=== PATIENT | male | born 1950 | race Caucasian/White ===

== ENCOUNTER 2022-10-24 07:30 | Inpatient (IN) | payer MEDICARE ==
[~2022-10-24] VITALS: Ht 180.3 cm; Wt 83.9 kg
[~2022-10-24 07:30] MED LIST: DICL20GE TOP; ESTE1TAB4 PO; LIDO1CRE2 EX; LOSA25TA13 PO; RA G1TAB11 PO; VITA100093 PO; VITMTA PO; [UNRECOGNIZED DRUG - CODE] PO; [UNRECOGNIZED DRUG - OTHER] PO; ginger root
[2022-10-24] MEDS ORDERED: ceFAZolin SOD 2 GM in IV 1 EA IV ONE (08:25)
[2022-11-15] VITALS (9 sets, daily range): BP systolic 137–152; BP diastolic 64–79; TEMP 97.5–98.1; O2SAT 95–98
[2022-11-15] MEDS ORDERED: UNRESOLVED CLARIFICATION ENTRY XX SCH (00:01)
[2022-11-15] MEDS ORDERED: LR 1,000 ML IV SCH ×2 (06:45→12:15)
[2022-11-15] MEDS ORDERED: ceFAZolin SOD 2 GM in IV 1 EA IV ONE (06:55)
[2022-11-15 07:08] LABS: INR 1.12; PROTHROMBIN TIME 14.1 SECONDS (12.5-14.5)
[2022-11-15 07:10] LABS: PARTIAL THROMBOPLASTIN TIME 32.6 SECONDS (24.8-34.2)
[2022-11-15] MEDS ORDERED: LIDOCAINE 1% SDV 30ML VIAL As Ordered ONE (07:13)
[2022-11-15] MEDS ORDERED: ONDANSETRON 4MG 2ML VIAL As Ordered ONE (07:18)
[2022-11-15] MEDS ORDERED: fentaNYL 250 MCG/5 ML INJECTION As Ordered ONE (07:18)
[2022-11-15] MEDS ORDERED: propofoL 200 MG/20 ML VIAL As Ordered ONE ×2 (07:18→12:31)
[2022-11-15] MEDS ORDERED: LIDOCAINE 2% 100MG/5ML SDV (FOR ANES.) As Ordered ONE (07:18)
[2022-11-15] MEDS ORDERED: ROCURONIUM BROMIDE 50MG/5ML VIAL As Ordered ONE ×2 (07:18→08:43)
[2022-11-15] MEDS ORDERED: CALCTAB53 PO (07:21)
[2022-11-15] MEDS ORDERED: MIDAZOLAM INJ 2MG/2ML VIAL As Ordered ONE (07:22)
[2022-11-15] MEDS ORDERED: HOME MED LIST COMPLETE! XX SCH (07:25)
[2022-11-15] MEDS ORDERED: ONDANSETRON 4MG 2ML VIAL IV PRN ×2 (07:35→12:15)
[2022-11-15] MEDS ORDERED: PERCOCET 5MG/325MG TAB PO PRN (07:35)
[2022-11-15] MEDS ORDERED: LACRILUBE (AKWA TEARS) OPHTH OINT 3.5GM As Ordered ONE (08:07)
[2022-11-15] MEDS ORDERED: MANNITOL 25% 12.5GM 50ML VIAL As Ordered ONE (09:23)
[2022-11-15] MEDS ORDERED: ACETAMINOPHEN 1000MG 100ML IV BAG As Ordered ONE (10:00)
[2022-11-15] MEDS ORDERED: SUGAMMADEX SODIUM 500 MG/5 ML VIAL (BRIDION) As Ordered ONE (10:00)
[2022-11-15] MEDS ORDERED: HYDROmorphone HCL 2MG/ML 1ML VIAL As Ordered ONE (10:00)
[2022-11-15] MEDS ORDERED: ceFAZolin 2 GM/D5W 50 ML IV BAG As Ordered ONE (11:40)
[2022-11-15] MEDS ORDERED: fentaNYL 100 MCG/2 ML INJECTION IV PRN (12:15)
[2022-11-15] MEDS ORDERED: oxyCODONE 5MG TAB PO PRN (12:15)
[2022-11-15] MEDS ORDERED: HYDROMORPHONE HCL 0.5 MG/ 0.5 ML SYRINGE IV PRN (12:15)
[2022-11-15] MEDS ORDERED: dexmedeTOMIDine (4MCG/ML)200MCG/50ML BTL (PRECEDEX) As Ordered ONE (12:29)
[2022-11-15 13:54] LABS: HEMATOCRIT 41.1 % (42.0-52.0); HEMOGLOBIN 13.4 g/dl (13.5-17.5); MEAN CORPUSCULAR HEMOGLOBIN 30.9 pg (27.0-33.0); MEAN CORPUSCULAR HGB CONC 32.6 g/dl (32.0-36.5); MEAN CORPUSCULAR VOLUME 94.7 fl (80.0-96.0); PLATELET COUNT, AUTOMATED 251 10^3/uL (150-450); RED BLOOD COUNT 4.34 10^6/uL (4.30-6.10); WHITE BLOOD COUNT 17.9 10^3/uL (4.0-10.0)
[2022-11-15 14:09] LABS: CALCIUM LEVEL 9.1 MG/DL (8.3-10.6); CREATININE FOR GFR 1.32 MG/DL (0.70-1.30); GLOMERULAR FILTRATION RATE 56.8 (>42); POTASSIUM SERUM 4.3 MMOL/L (3.5-5.1)
[2022-11-15] MEDS: NS 1,000 ML IV SCH ×2 (15:35→18:14)
[2022-11-15] MEDS: ceFAZolin SOD 1 GM in D5W MINI-BAG PLUS 50 ML IV SCH (18:14)
[2022-11-15] MEDS: ACETAMINOPHEN TAB 650MG DOSE (2X325MG) PO PRN (20:28)
[2022-11-15] MEDS: DOCUSATE SODIUM 100MG CAPSULE PO SCH (20:28)
[2022-11-16] MEDS: ceFAZolin SOD 1 GM in D5W MINI-BAG PLUS 50 ML IV SCH (00:44)
[2022-11-16] MEDS: NS 1,000 ML IV SCH (03:29)
[2022-11-16 03:35] VITALS: BP 135/66; TEMP 97.9; O2SAT 100
[2022-11-16 07:00] LABS: HEMATOCRIT 37.5 % (42.0-52.0); HEMOGLOBIN 12.5 g/dl (13.5-17.5); MEAN CORPUSCULAR HEMOGLOBIN 30.6 pg (27.0-33.0); MEAN CORPUSCULAR HGB CONC 33.3 g/dl (32.0-36.5); MEAN CORPUSCULAR VOLUME 91.9 fl (80.0-96.0); PLATELET COUNT, AUTOMATED 222 10^3/uL (150-450); RED BLOOD COUNT 4.08 10^6/uL (4.30-6.10); WHITE BLOOD COUNT 18.9 10^3/uL (4.0-10.0)
[2022-11-16 07:25] LABS: CALCIUM LEVEL 9.1 MG/DL (8.3-10.6); CREATININE FOR GFR 1.63 MG/DL (0.70-1.30); GLOMERULAR FILTRATION RATE 44.5 (>42); POTASSIUM SERUM 4.6 MMOL/L (3.5-5.1)
[2022-11-16] MEDS: DOCUSATE SODIUM 100MG CAPSULE PO SCH ×2 (09:15→20:46)
[2022-11-16] MEDS: LOSARTAN 25 MG TAB PO SCH (09:16)
[2022-11-16 10:00] VITALS: BP 133/64; TEMP 97.9; O2SAT 98
[2022-11-16 14:00] VITALS: BP 130/65; TEMP 97.7; O2SAT 98
[2022-11-16] MEDS ORDERED: COLA100C5 PO (16:08)
[2022-11-16] MEDS ORDERED: PERCOCET PO (16:08)
[2022-11-16] MEDS: PERCOCET 5MG/325MG TAB PO PRN (17:51)
[2022-11-16 18:00] VITALS: BP 146/77; TEMP 97.9; O2SAT 97
[2022-11-16] MEDS: ACETAMINOPHEN TAB 650MG DOSE (2X325MG) PO PRN (20:46)
[2022-11-16 22:00] VITALS: BP 145/79; TEMP 98.1; O2SAT 95
[2022-11-17 02:00] VITALS: BP 133/72; TEMP 97.8; O2SAT 96
[2022-11-17] MEDS: PERCOCET 5MG/325MG TAB PO PRN ×2 (05:40→14:22)
[2022-11-17 06:00] VITALS: BP 150/77; TEMP 98.1; O2SAT 94
[2022-11-17 08:08] LABS: HEMATOCRIT 37.2 % (42.0-52.0); HEMOGLOBIN 12.3 g/dl (13.5-17.5); MEAN CORPUSCULAR HEMOGLOBIN 30.8 pg (27.0-33.0); MEAN CORPUSCULAR HGB CONC 33.1 g/dl (32.0-36.5); PLATELET COUNT, AUTOMATED 233 10^3/uL (150-450); WHITE BLOOD COUNT 17.2 10^3/uL (4.0-10.0)
[2022-11-17 08:26] LABS: CALCIUM LEVEL 9.1 MG/DL (8.3-10.6); CREATININE FOR GFR 1.66 MG/DL (0.70-1.30); GLOMERULAR FILTRATION RATE 43.6 (>42); POTASSIUM SERUM 4.4 MMOL/L (3.5-5.1)
[2022-11-17 09:00] VITALS: BP 150/77
[2022-11-17] MEDS: LOSARTAN 25 MG TAB PO SCH (09:00)
[2022-11-17] MEDS: DOCUSATE SODIUM 100MG CAPSULE PO SCH (09:00)
[2022-11-17 10:00] VITALS: BP 155/77; TEMP 97.7; O2SAT 98
[2022-11-17 14:01] VITALS: BP 138/98; TEMP 98.2; O2SAT 98
== END 2022-11-17 20:10 | disposition home or self-care (01) | DRG 657 ==
LOC: M OR 11-15 06:05 → M MS5PR 11-15 14:30
PROVIDERS: ADMIT Urology; ATTEND Urology
PROC: 8E0W4CZ Robotic Assisted Procedure of Trunk Region, Percutaneous Endoscopic Approach (ICD-10-PCS; 2022-11-15)
PROC: 0TB14ZZ Excision of Left Kidney, Percutaneous Endoscopic Approach (ICD-10-PCS; principal; 2022-11-15 07:30)
DX: D30.02 Benign neoplasm of left kidney (principal); N11.8 Other chronic tubulo-interstitial nephritis; N26.9 Renal sclerosis, unspecified; N28.89 Other specified disorders of kidney and ureter

== ENCOUNTER → 2022-11-23 | Outpatient (CLI) | payer MEDICARE ==
[~2022-11-23] MED LIST changes: +CALCTAB53 PO; +COLA100C5 PO; +PERCOCET PO
[2022-11-23 17:28] LABS: BASO # 0.1 10^3/uL (0.0-0.2); BASO % 0.8 % (0.0-1.0); EOS # 0.2 10^3/uL (0.0-0.5); EOS % 1.3 % (0.0-3.0); HEMATOCRIT 40.4 % (42.0-52.0); HEMOGLOBIN 13.2 g/dl (13.5-17.5); LYMPH # 4.3 10^3/uL (1.5-5.0); LYMPH % 36.4 % (24.0-44.0); MEAN CORPUSCULAR HEMOGLOBIN 30.4 pg (27.0-33.0); MEAN CORPUSCULAR HGB CONC 32.7 g/dl (32.0-36.5); MEAN CORPUSCULAR VOLUME 93.1 fl (80.0-96.0); MONO # 1.6 10^3/uL (0.0-0.8); MONO % 13.8 % (2.0-8.0); NEUTROPHILS # 5.6 10^3/uL (1.5-8.5); NEUTROPHILS % 47.4 % (36.0-66.0); PLATELET COUNT, AUTOMATED 388 10^3/uL (150-450); RED BLOOD COUNT 4.34 10^6/uL (4.30-6.10); WHITE BLOOD COUNT 11.8 10^3/uL (4.0-10.0)
[2022-11-23 17:41] LABS: CALCIUM LEVEL 9.8 MG/DL (8.3-10.6); CREATININE FOR GFR 1.46 MG/DL (0.70-1.30); GLOMERULAR FILTRATION RATE 50.5 (>42); POTASSIUM SERUM 4.6 MMOL/L (3.5-5.1)
== END ==
LOC: M PLALAB 15:20
PROVIDERS: ATTEND Physician Assistant
DX: D30.02 Benign neoplasm of left kidney (principal)